=== PATIENT | female | born 1995 | race Caucasian/White ===

== ENCOUNTER → 2018-09-30 | Outpatient (CLI) | payer BC, OTHER ==
[~2018-09-30] MED LIST: ALB18R INH
--- NOTE | 2018-09-30 11:56 | RADIOLOGY IMAGING REPORT ---
FACILITY: [facility] PATIENT NAME: Marsha Bar : 1995 MR: [id number] V: [id number] EXAM DATE: ORDERING PHYSICIAN: MOUSTAPHA OROZCO TECHNOLOGIST: Location: [facility] [place] Patient: Marsha Bar : 1995 Visit/Account:[id number] Date of Sevice: 09/30/2018 Limited abdominal ultrasound of the right upper quadrant Indication: Right upper quadrant pain x2 years , Comparison: None available Findings Liver is normal in size, contour, and echotexture and measures 16.7 cm in length. There is normal hep atopedal portal venous flow. Gallbladder wall thickness is 1.9 mm with no evidence of shadowing stone or sludge within the gallbla dder lumen. Negative sonographic Guardado's sign reported by the technologist. Common duct measures 2.8 mm in maximum diameter with no evidence of shadowing stone. The head and proximal body of the pancreas is unremarkable. The distal body and tail is obscured by o verlying bowel gas. Abdominal aorta and IVC are patent and unremarkable. The right kidney is normal in size, contour, and echotexture and measures 10.8 cm in length. IMPRESSION: 1. Unremarkable appearance of the gallbladder and no acute abnormality on this ultrasound of the righ t upper quadrant region. Report Dictated By: Alfredito Benedict at 09/30/2018 11:52 AM Report E-Signed By: Alfredito Benedict at 09/30/2018 11:53 AM WSN:[email or web address]
== END ==
LOC: US 01:12
PROVIDERS: ATTEND Family Medicine
DX: R10.11 Right upper quadrant pain (principal)
CPT/HCPCS: 76705